=== PATIENT | female | born 1955 | race Caucasian/White ===

== ENCOUNTER → 2025-01-22 08:54 | Outpatient (REF) | payer BC, SELFPAY | LOC: DHSLP 08:54 | PROVIDERS: ATTENDING PHYSICIAN Internal Medicine | DX: G47.33 Obstructive sleep apnea (adult) (pediatric) (principal); R06.83 Snoring | CPT/HCPCS: 95800 ==

== ENCOUNTER → 2025-03-09 14:40 | Outpatient (REF) | payer OTHER, SELFPAY | LOC: HWRAD 14:40 | PROVIDERS: ATTENDING PHYSICIAN Physician Assistant | DX: N30.00 Acute cystitis without hematuria (principal) | CPT/HCPCS: 76770 ==